=== PATIENT | male | born 2005 | race Caucasian/White ===

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

== ENCOUNTER 2025-01-26 15:42 | Emergency (ER) | payer OTHER ==
[~2025-01-26] VITALS: Ht 167.6 cm; Wt 61.0 kg
[~2025-01-26 15:42] MED LIST changes: +ACET-66 PO; +DIPH-1130 PO
[2025-01-26 15:59] VITALS: TEMP 97.7
[2025-01-26] MEDS: HYDROCODONE/ACETAMINOPHEN 5-325 MG TABLET PO ONE (18:07)
[2025-01-26] MEDS ORDERED: HYDR-4062 PO (21:09)
[2025-01-26] MEDS ORDERED: IBUP-1493 PO (21:09)
[2025-01-26 21:20] VITALS: BP 116/65; PULSE 60; RESP 18; O2SAT 99
== END 2025-01-26 21:30 | disposition home or self-care (01) ==
LOC: EMS 15:42
DX: S62.306A Unspecified fracture of fifth metacarpal bone, right hand, initial encounter for closed fracture (principal); Z79.899 Other long term (current) drug therapy; X58.XXXA Exposure to other specified factors, initial encounter; Y93.89 Activity, other specified; Y92.89 Other specified places as the place of occurrence of the external cause; Y99.8 Other external cause status
CPT/HCPCS: 99283